=== PATIENT | male | born 2000 | race Two or more races ===

== ENCOUNTER → 2020-07-28 13:25 | Outpatient (CLI) | payer OTHER | END | disposition home or self-care (01) | LOC: PPH VACUNA 13:25 | DX: Z23 Encounter for immunization (principal) ==

== ENCOUNTER 2022-07-13 06:21 | Day surgery (SDC) | payer OTHER | END 2022-07-13 20:05 | disposition home or self-care (01) | LOC: CIR.AMB 06:21 | PROVIDERS: ATTEND Orthopaedic Surgery Hand Surgery | DX: S62.635A Displaced fracture of distal phalanx of left ring finger, initial encounter for closed fracture (principal); Z20.822 Contact with and (suspected) exposure to COVID-19; E11.9 Type 2 diabetes mellitus without complications; E78.00 Pure hypercholesterolemia, unspecified; E78.3 Hyperchylomicronemia ==